=== PATIENT | female | born 1995 | race Caucasian/White ===

== ENCOUNTER 2019-01-06 07:34 | Outpatient (CLI) | payer OTHER ==
--- NOTE | 2019-01-06 09:29 | RAD ---
LEFT KNEE THREE VIEWS: HISTORY: Injury. Left knee pain. Lateral joint line tenderness of the left knee. FINDINGS: No fracture, dislocation, or bony destruction is seen. POS: [facility]
--- NOTE | 2019-01-06 09:38 | MRI ---
MR OF THE LEFT KNEE WITHOUT CONTRAST INDICATION: Left knee pain TECHNIQUE: Axial and coronal PD fat sat, sagittal T2 fat sat, sagittal PD turbo spin echo and T1 katherine nal images were obtained of the left knee. COMPARISON: Left knee radiograph dated January 06, 2019 FINDINGS: Joint effusion: Mild Semimembranosus-medial gastrocnemius popliteal cyst: Small Ligaments: The ACL, PCL, MCL and LCLC are intact. Extensor mechanism: Intact. Menisci: Intact. Articular cartilage: Intact. Osseous structures: Normal marrow signal. Popliteus and IT band: Normal. IMPRESSION: 1. Mild joint effusion and small popliteal cyst. 2. No additional acute abnormality demonstrated.
== END 2019-01-06 07:35 | disposition home or self-care (01) ==
LOC: TBSIIMAG 07:34
PROVIDERS: ATTEND Pediatrics Sports Medicine
DX: M25.562 Pain in left knee (principal); S83.207A Unspecified tear of unspecified meniscus, current injury, left knee, initial encounter; M25.462 Effusion, left knee; M71.22 Synovial cyst of popliteal space [Baker], left knee